=== PATIENT | female | born 1930 | race Caucasian/White ===

== ENCOUNTER 2018-12-16 20:25 | Inpatient (IN) | payer MEDICARE ==
[~2018-12-16] VITALS: Ht 162.6 cm; Wt 81.2 kg
[2018-12-16] MEDS ORDERED: ASPIRIN 81 MG TAB.CHEW PO ONE (20:30)
[2018-12-16] MEDS ORDERED: MORPHINE SULFATE 2 MG/ML DISP.SYRIN. IV ONE (20:30)
[2018-12-16] MEDS ORDERED: IV RINGERS SOLUTION,LACTATED 1,000 ML IV SCH (20:30)
--- NOTE | 2018-12-16 20:34 | ED.ADGEN ---
Past History Past Medical History: Arthritis, Arrhythmia, CAD, Diabetes, GERD, High Cholesterol, Heart Disease, Hypertension, Kidney Infection, Lung Disease, UTI, Other Past Surgical History: Angioplasty, Coronary Bypass Surgery, Other Past Surgical History Rt. ankle- Adult General Chief Complaint Chief Complaint ".. I had another episode of chest pain tonight.. "... " I was just in to see my Perl Software Engineer at [facility].. Dr. Camila Park... he said he might do a stress test or heart cath at some point.. but would not do anything until maybe next year some time.. He said just go to the ED .. if I got chest pain again..." HPI HPI Patient is a 88 year old female who presents with above hx and chest pain. Pain was center of chest and into both axillary area. Pt. reports pain was more of ache...Pt. had similar episode a week ago. Pt. seen her Perl Software Engineer on . Pt. Hx of CABG [address] Zavala at , after attempts of angioplasty not successful. Patient has a history of multiple medical problems, diabetes, hypertension, overflow urinary incontinence with frequent urinary tract infections, arthritis, reflux, and deconditioning. Pt. Follows with Dr. Worthington as primary. Patient advises she used to take nitroglycerin for angina episodes but has not done so for some time. Patient did receive flu shot and Pneumovax yesterday. Patient is accompanied with her daughter. She currently rates her pain as 0 out of 10. Review of Systems Review of Systems Constitutional: Denies fever or chills [] Eyes: Denies change in visual acuity, redness, or eye pain [] HENT: Denies nasal congestion or sore throat [] Respiratory: Denies cough or shortness of breath [] Cardiovascular: No additional information not addressed in HPI [] GI: Denies abdominal pain, nausea, vomiting, bloody stools or diarrhea [] : Denies dysuria or hematuria [] Musculoskeletal: Denies back pain or joint pain [] Integument: Denies rash or skin lesions [] Neurologic: Denies headache, focal weakness or sensory changes [] Endocrine: Denies polyuria or polydipsia [] All other systems were reviewed and found to be within normal limits, except as documented in this note. Family History Family History Diabetes and hypertension Current Medications Current Medications Current Medications Medications (Trade) Dose Ordered Sig/Vicente Start Time Stop Time Status Last Admin Dose Admin Aspirin (Children'S Aspirin) 324 mg 1X ONCE 12/16/18 20:30 12/16/18 20:35 DC 12/16/18 20:45 324 MG Lactated Ringer's 1,000 ml @ 100 mls/hr Q10H 12/16/18 20:30 12/17/18 06:29 12/16/18 20:46 100 MLS/HR Morphine Sulfate (Morphine 2mg Syringe) 2 mg 1X ONCE 12/16/18 20:30 12/16/18 20:35 DC Nitroglycerin (Nitro-Bid Oint) 0.5 inch 1X ONCE 12/16/18 21:30 12/16/18 21:31 DC 12/16/18 21:23 0.5 INCH Allergies Allergies Allergies Coded Allergies Type Severity Reaction Last Updated Verified digoxin Allergy Intermediate 12/16/18 Yes morphine Allergy Intermediate 12/16/18 Yes Physical Exam Physical Exam Constitutional: no acute distress currently, non-toxic appearance. [] HENT: Normocephalic, atraumatic, bilateral external ears normal, oropharynx moist, no oral exudates, nose normal. [] Eyes: PERRLA, EOMI, conjunctiva normal, no discharge. [Eyeglasses Neck: Normal range of motion, no tenderness, supple, no stridor. [] Cardiovascular: Tachycardia Heart rate regular rhythm, no murmur []ARELY to the left. Occasional PVC on monitor. Appears to be accelerated junctional rhythm Lungs & Thorax: Bilateral breath sounds equal at apex with scattered wheezes on auscultation []midline sternal scar Abdomen: Bowel sounds normal, soft, no tenderness, no masses, no pulsatile masses. Old surgery scars Skin: Warm, dry, no erythema, no rash. Poor turgor Back: No tenderness, no CVA tenderness. [] Extremities: No tenderness, no cyanosis, no clubbing, , bilateral ankle edema. Arthritic changes. Old surgery scar right ankle. No cording appreciated Neurologic: Alert and oriented X 3, moves all extremities on request, does have distal sensory, no focal deficits noted. [] Psychologic: Affect anxious, judgement normal, mood normal. [] Current Patient Data Vital Signs Vital Signs Date Time Temp Pulse Resp B/P (MAP) Pulse Ox O2 Delivery O2 Flow Rate FiO2 12/16/18 21:23 75 140/75 12/16/18 20:25 97.9 22 96 Room Air Lab Results Laboratory Tests Test 12/16/18 20:30 12/16/18 21:40 12/16/18 21:49 White Blood Count 7.6 x10^3/uL (4.0-11.0) Red Blood Count 4.91 x10^6/uL (3.50-5.40) Hemoglobin 14.5 g/dL (12.0-15.5) Hematocrit 43.3 % (36.0-47.0) Mean Corpuscular Volume 88 fL (79-100) Mean Corpuscular Hemoglobin 30 pg (25-35) Mean Corpuscular Hemoglobin Concent 33 g/dL (31-37) Red Cell Distribution Width 16.2 % (11.5-14.5) H Platelet Count 189 x10^3/uL (140-400) Neutrophils (%) (Auto) 69 % (31-73) Lymphocytes (%) (Auto) 15 % (24-48) L Monocytes (%) (Auto) 11 % (0-9) H Eosinophils (%) (Auto) 4 % (0-3) H Basophils (%) (Auto) 1 % (0-3) Neutrophils # (Auto) 5.3 x10^3uL (1.8-7.7) Lymphocytes # (Auto) 1.2 x10^3/uL (1.0-4.8) Monocytes # (Auto) 0.8 x10^3/uL (0.0-1.1) Eosinophils # (Auto) 0.3 x10^3/uL (0.0-0.7) Basophils # (Auto) 0.1 x10^3/uL (0.0-0.2) Sodium Level 137 mmol/L (136-145) Potassium Level 3.9 mmol/L (3.5-5.1) Chloride Level 98 mmol/L (98-107) Carbon Dioxide Level 31 mmol/L (21-32) Anion Gap 8 (6-14) Blood Urea Nitrogen 15 mg/dL (7-20) Creatinine 1.2 mg/dL (0.6-1.0) H Estimated GFR (Cockcroft-Gault) 42.5 Glucose Level 281 mg/dL (70-99) H Calcium Level 9.1 mg/dL (8.5-10.1) Magnesium Level 1.8 mg/dL (1.8-2.4) Total Bilirubin 0.2 mg/dL (0.2-1.0) Direct Bilirubin 0.1 mg/dL (0.0-0.2) Aspartate Amino Transferase (AST) 24 U/L (15-37) Alanine Aminotransferase (ALT) 27 U/L (14-59) Alkaline Phosphatase 57 U/L (46-116) Creatine Kinase 55 U/L (26-192) Troponin I Quantitative < 0.017 ng/mL (0-0.055) OS-Tfw-K-Type Natriuretic Peptide 511 pg/mL (0-449) H Total Protein 7.5 g/dL (6.4-8.2) Albumin 3.6 g/dL (3.4-5.0) Lipase 160 U/L (73-393) Prothrombin Time 10.0 SEC (9.4-11.4) Prothrombin Time INR 1.0 (0.9-1.1) Activated Partial Thromboplast Time 25 SEC (23-33) D-Dimer (Safia) 0.59 mg/L (0.00-0.50) H Urine Collection Type Unknown Urine Color Straw Urine Clarity Cloudy Urine pH 5.5 Urine Specific [place]ony 1.010 Urine Protein 30 mg/dl (NEG-TRACE) Urine Glucose (UA) >=1000 mg/dL (NEG) Urine Ketones (Stick) Neg mg/dL (NEG) Urine Blood Trace (NEG) Urine Nitrite Neg (NEG) Urine Bilirubin Neg (NEG) Urine Urobilinogen Dipstick 0.2 mg/dL (0.2 mg/dL) Urine Leukocyte Esterase Small (NEG) Urine RBC 1-2 /HPF (0-2) Urine WBC 20-40 /HPF (0-4) Urine Squamous Epithelial Cells Occ /LPF Urine Bacteria Many /HPF (0-FEW) Urine Opiates Screen Neg (NEG) Urine Methadone Screen Neg (NEG) Urine Barbiturates Neg (NEG) Urine Phencyclidine Screen Neg (NEG) Urine Amphetamine/Methamphetamine Neg (NEG) Urine Benzodiazepines Screen Neg (NEG) Urine Cocaine Screen Neg (NEG) Urine Cannabinoids Screen Neg (NEG) Urine Ethyl Alcohol Neg (NEG) EKG EKG I interpretation EKG shows accelerated junctional rhythm at a rate at 117 bpm. Does have anterior septal strain pattern and left axis. [place] baseline[] Radiology/Procedures Radiology/Procedures [][address] [address] IMAGING REPORT Signed PATIENT: RODDY KELLYOUNT: [id number] : 1930 LOCATION: ER AGE: 88 SEX: F EXAM STATUS: PRE ER ORD. PHYSICIAN: SHIRLEY SOLIS MD REASON: cp PROCEDURE: PORTABLE CHEST 1V Exam: Chest one view INDICATION: Chest pain TECHNIQUE: Frontal view of the chest Comparisons: None FINDINGS: Sternotomy wires are noted. Surgical clips overlying the left heart border. The cardiomediastinal silhouette and pulmonary vessels are within normal limits. The lung and pleural spaces are clear. IMPRESSION: No acute cardiopulmonary process. Electronically signed by: Grayson Maldonado MD (12/16/2018 10:33 PM) [facility] DICTATED AND SIGNED BY: GRAYSON MALDONADO MD DATE: 12/16/182232 CC: SHIRLEY SOLIS MD ~ Course & Med Decision Making Course & Med Decision Making Pertinent Labs and Imaging studies reviewed. (See chart for details) Pt. Admitted to Dr. Larkin, and Cardiology consult. US of legs in AM . Antibiotic for UTI. At time admit no discomfort. - Accelerated Junctional Rhythm - Resolved [] Final Impression Final Impression 1. Chest Pain- Heart Score 6+[] 2. HTN 3. DM- 281 4. Elevated D-dimer 0.59 5. Elevated Creat 1.2 6. Hx. Urinary Overflow incontinence-self caths - Hx. of UTI 7. Accelerated Junctional Rhythm Dragon Disclaimer Dragon Disclaimer This electronic medical record was generated, in whole or in part, using a voice recognition dictation system. Dragon Disclaimer This chart was dictated in whole or in part using Voice Recognition software in a busy, high-work load, and often noisy Emergency Department environment. It may contain unintended and wholly unrecognized errors or omissions. SHIRLEY SOLIS MD Dec 16, 2018 20:34
[2018-12-16 20:49] LABS: BASO # 0.1 x10^3/uL (0.0-0.2); BASO % 1 % (0-3); EOS # 0.3 x10^3/uL (0.0-0.7); EOS % 4 % (0-3); HEMATOCRIT 43.3 % (36.0-47.0); HEMOGLOBIN 14.5 g/dL (12.0-15.5); LYMPH # 1.2 x10^3/uL (1.0-4.8); LYMPH % 15 % (24-48); MEAN CORPUSCULAR HEMOGLOBIN 30 pg (25-35); MEAN CORPUSCULAR HGB CONC 33 g/dL (31-37); MEAN CORPUSCULAR VOLUME 88 fL (79-100); MONO # 0.8 x10^3/uL (0.0-1.1); MONO % 11 % (0-9); NEUT # 5.3 x10^3uL (1.8-7.7); NEUT % 69 % (31-73); PLATELET COUNT 189 x10^3/uL (140-400); RED BLOOD COUNT 4.91 x10^6/uL (3.50-5.40); RED CELL DISTRIBUTION WIDTH 16.2 % (11.5-14.5); WHITE BLOOD COUNT 7.6 x10^3/uL (4.0-11.0)
[2018-12-16 21:12] LABS: ALBUMIN 3.6 g/dL (3.4-5.0); CALCIUM 9.1 mg/dL (8.5-10.1); CREATININE 1.2 mg/dL (0.6-1.0); DIRECT BILIRUBIN 0.1 mg/dL (0.0-0.2); GFR 42.5; MAGNESIUM 1.8 mg/dL (1.8-2.4); POTASSIUM 3.9 mmol/L (3.5-5.1); TOTAL BILIRUBIN 0.2 mg/dL (0.2-1.0); TOTAL PROTEIN 7.5 g/dL (6.4-8.2)
[2018-12-16] MEDS ORDERED: NITROGLYCERIN OINT 1 GM PACKET. TP ONE (21:30)
[2018-12-16 22:13] LABS: AMPHETAMINE/METHAMPHETAMINE NEG (NEG); BARBITURATES NEG (NEG); BENZODIAZEPINES NEG (NEG); CANNABINOIDS NEG (NEG); COCAINE NEG (NEG); METHADONE NEG (NEG); OPIATES NEG (NEG); PHENCYCLIDINE NEG (NEG)
--- NOTE | 2018-12-16 22:36 | RAD ---
Exam: Chest one view INDICATION: Chest pain TECHNIQUE: Frontal view of the chest Comparisons: None FINDINGS: Sternotomy wires are noted. Surgical clips overlying the left heart border. The cardiomediastinal silhouette and pulmonary vessels are within normal limits. The lung and pleural spaces are clear. IMPRESSION: No acute cardiopulmonary process. Electronically signed by: Grayson Barnes MD (12/16/2018 10:33 PM) [facility]
[2018-12-16 22:51] LABS: CLARITY,URINE CLOUDY; COLOR,URINE STRAW
[2018-12-16 22:52] LABS: BACTERIA,URINE MANY /HPF (0-FEW); BILIRUBIN,URINE NEG (NEG); GLUCOSE,URINE >=1000 mg/dL (NEG); NITRITE,URINE NEG (NEG); SQUAMOUS EPITHELIAL CELL,UR OCC /LPF; UROBILINOGEN,URINE 0.2 mg/dL (0.2 mg/dL); WBC,URINE 20-40 /HPF (0-4)
[2018-12-16] MEDS ORDERED: ONDANSETRON PF 4 MG/2 ML VIAL. IV PRN (23:15)
[2018-12-16] MEDS ORDERED: ACETAMINOPHEN 325 MG TABLET PO PRN (23:15)
[2018-12-16] MEDS ORDERED: ENOXAPARIN ** NOTE DOSE ** SYRINGE SQ ONE (23:30)
[2018-12-16] MEDS ORDERED: cefTRIAXone SODIUM 1 GM VIAL ONE (23:40)
[2018-12-16] MEDS ORDERED: IV NORMAL SALINE 50ML 50 ML ONE (23:40)
[2018-12-17 01:21] VITALS: BP 164/79
[2018-12-17] MEDS ORDERED: ANTI-COAG MONITOR BY PHARMACY. MC PRN (01:45)
[2018-12-17] MEDS ORDERED: SIMV20TA3 (02:21)
[2018-12-17] MEDS ORDERED: CHOL10003 PO (02:21)
[2018-12-17] MEDS ORDERED: ISOS30TA4 (02:21)
[2018-12-17] MEDS ORDERED: FENO67CA (02:21)
[2018-12-17] MEDS ORDERED: ASPI-630 PO (02:21)
[2018-12-17] MEDS ORDERED: MAGN71.5 PO (02:21)
[2018-12-17] MEDS ORDERED: INSU100V13 (02:21)
[2018-12-17] MEDS ORDERED: SERT25TA4 (02:21)
[2018-12-17] MEDS ORDERED: LEVO125T (02:21)
[2018-12-17] MEDS ORDERED: METO100T7 (02:21)
[2018-12-17] MEDS ORDERED: OMEP40CA45 (02:21)
--- NOTE | 2018-12-17 03:35 | EKG ---
[address] [address] Test Date: 2018-12-16 Test Time: 20:28:31 Pat Name: SHEREEN KELLY Department: Room: 117 A Gender: F Lead Javascript Engineer: SERA : 1930 Requested By: SHIRLEY SOLIS Order Number: [id number] Reading MD: Asif Blackburn MD Measurements Intervals [place] Rate: 117 P: AL: QRS: -12 QRSD: 76 T: 51 QT: 312 QTc: 439 Interpretive Statements PROBABLE SINUS TACHYCARDIA CANNOT RULE OUT JUNCTIONAL RHYTHM NON-SPECIFIC ST/T CHANGES Electronically Signed On 12-17-2018 13:04:46 CDT by Asif Blackburn MD
[2018-12-17 05:39] VITALS: BP 131/71
[2018-12-17 06:44] LABS: BASO # 0.1 x10^3/uL (0.0-0.2); BASO % 1 % (0-3); EOS # 0.4 x10^3/uL (0.0-0.7); EOS % 5 % (0-3); HEMATOCRIT 42.7 % (36.0-47.0); HEMOGLOBIN 14.1 g/dL (12.0-15.5); LYMPH # 1.2 x10^3/uL (1.0-4.8); LYMPH % 15 % (24-48); MEAN CORPUSCULAR HEMOGLOBIN 29 pg (25-35); MEAN CORPUSCULAR HGB CONC 33 g/dL (31-37); MEAN CORPUSCULAR VOLUME 89 fL (79-100); MONO # 0.8 x10^3/uL (0.0-1.1); MONO % 11 % (0-9); NEUT # 5.3 x10^3uL (1.8-7.7); NEUT % 68 % (31-73); PLATELET COUNT 204 x10^3/uL (140-400); RED BLOOD COUNT 4.81 x10^6/uL (3.50-5.40); RED CELL DISTRIBUTION WIDTH 16.7 % (11.5-14.5); WHITE BLOOD COUNT 7.7 x10^3/uL (4.0-11.0)
[2018-12-17 07:34] LABS: ALBUMIN 3.5 g/dL (3.4-5.0); ALBUMIN/GLOBULIN RATIO 0.9 (1.0-1.7); CALCIUM 8.6 mg/dL (8.5-10.1); CREATININE 1.1 mg/dL (0.6-1.0); POTASSIUM 3.8 mmol/L (3.5-5.1); TOTAL BILIRUBIN 0.2 mg/dL (0.2-1.0); TOTAL PROTEIN 7.3 g/dL (6.4-8.2)
--- NOTE | 2018-12-17 07:44 | PDOC2 ---
EARL HIGH EMBROIDERY ASSISTANT 12/17/18 0744: CARDIAC CONSULT DATE OF CONSULT Date Of Consult DATE: 12/17/18 TIME: 07:40 REASON FOR CONSULT Reason for Consult Chest pain REFERRING PHYSICIAN Referring Physician Dr. Pierson SOURCE Source: Chart review, Patient HPI History of Present Illness This is an 88 yo female who presented secondary to chest pain. Patient reports having episode of chest pain 2 weeks ago. Describes as aching across her central chest and through to her back and down her arms. No associated dizziness, diaphoresis, shortness of breath, or nausea/vomiting. Saw primary director of strategic communications, Dr. Morales last week and reported episode of chest pain. Stress test versus heart cath was discussed, but ultimately decided not to pursue anything further at that time. Was recommended to go to the ED if pain returned. Yesterday evening while watching television, patient had aching pain in her bilateral chest up under her arms. No associated dizziness, diaphoresis, palpitations, shortness of breath, or nausea/vomiting. Patient went to bed and pain persisted so she came to the ED for further evaluation and treatment. Pain seemed to resolved with nitro patch and has not returned since. Has a h/o CAD s/p 2 vessel CABG in 2002. No cardiac cath since bypass. No recent stress test or echocardiogram. PAST MEDICAL HISTORY Cardiovascular: CAD, HTN, hyperipidemia GI: GERD Heme/Onc: Cancer (breast, bladder, thyroid ) Musculoskeletal: Osteoarthritis Renal/: UTI Endocrine: Diabetes, Hypothyroidism (acquired ) PAST SURGICAL HISTORY Past Surgical History: CABG, Hysterectomy, Other (thyroidectomy ) FAMILY HISTORY Family History: Cancer SOCIAL HISTORY Smoke: No ALCOHOL: none Drugs: None Lives: with Family CURRENT MEDICATIONS Current Medications Current Medications Aspirin (Children'S Aspirin) 324 mg 1X ONCE PO Last administered on 12/16/18at 20:45; Start 12/16/18 at 20:30; Stop 12/16/18 at 20:35; Status DC Morphine Sulfate (Morphine 2mg Syringe) 2 mg 1X ONCE IV ; Start 12/16/18 at 20:30; Stop 12/16/18 at 20:35; Status DC Lactated Ringer's 1,000 ml @ 100 mls/hr Q10H IV Last administered on 12/16/18at 20:46; Start 12/16/18 at 20:30; Stop 12/17/18 at 06:29; Status DC Nitroglycerin (Nitro-Bid Oint) 0.5 inch 1X ONCE TP Last administered on 12/16/18at 21:23; Start 12/16/18 at 21:30; Stop 12/16/18 at 21:31; Status DC Ceftriaxone Sodium 1 gm/ Sodium Chloride 50 ml @ 100 mls/hr 1X ONCE IV Last administered on 12/16/18at 23:48; Start 12/16/18 at 23:30; Stop 12/16/18 at 23:59; Status DC Ondansetron HCl (Zofran) 4 mg PRN Q4HRS PRN IV NAUSEA/VOMITING; Start 12/16/18 at 23:15; Stop 12/17/18 at 23:14 Acetaminophen (Tylenol) 650 mg PRN Q4HRS PRN PO FEVER; Start 12/16/18 at 23:15; Stop 12/17/18 at 23:14 Albuterol/ Ipratropium (Duoneb) 3 ml RTQID NEB ; Start 12/17/18 at 08:00; Stop 12/18/18 at 07:59 Enoxaparin Sodium (Lovenox 80mg Syringe) 80 mg 1X ONCE SQ Last administered on 12/16/18at 23:47; Start 12/16/18 at 23:30; Stop 12/16/18 at 23:31; Status DC Nitroglycerin (Nitro-Bid Oint) 0.5 inch TID TP ; Start 12/17/18 at 09:00 Aspirin (Children'S Aspirin) 81 mg DAILY PO ; Start 12/17/18 at 09:00 Sodium Chloride 50 ml @ As Directed STK-MED ONCE .ROUTE ; Start 12/16/18 at 23:40; Stop 12/16/18 at 23:40; Status DC Ceftriaxone Sodium (Rocephin) 1 gm STK-MED ONCE .ROUTE ; Start 12/16/18 at 23:40; Stop 12/16/18 at 23:40; Status DC Enoxaparin Sodium (Lovenox 80mg Syringe) 80 mg Q12HR SQ ; Start 12/17/18 at 09:00 Info (Anti-Coagulation Monitoring By Pharmacy) 1 each PRN DAILY PRN MC SEE COMMENTS; Start 12/17/18 at 01:45 Active Scripts Active Reported Vitamin D3 (Cholecalciferol (Vitamin D3)) 1,000 Unit Tablet 6 Tab PO DAILY Slow-Mag (Magnesium Chloride) 71.5 Mg Tablet.dr 1 Tab PO BID 30 Days Aspirin 81 Mg Tab.chew 81 Mg PO DAILY Sertraline Hcl 25 Mg Tablet 0.5 QHS Synthroid (Levothyroxine Sodium) 125 Mcg Tablet 1 DAILY Simvastatin 20 Mg Tablet 1 DAILY Omeprazole 40 Mg Capsule.dr 1 BID Metoprolol Tartrate 100 Mg Tablet 1 SEE COMMENTS Levemir (Insulin Detemir) 100 Unit/1 Ml Vial 1 SEE COMMENT Isosorbide Mononitrate Er (Isosorbide Mononitrate) 30 Mg Tab.er.24h 1 DAILY Fenofibrate (Fenofibrate,Micronized) 67 Mg Capsule 1 QHS ALLERGIES Allergies: Coded Allergies: digoxin (Verified Allergy, Intermediate, 12/16/18) morphine (Verified Allergy, Intermediate, 12/16/18) ROS Review of Systems 14 point ROS conducted with pertinent positives noted above in HPI. PHYSICAL EXAM General: Alert, Oriented X3, Cooperative, No acute distress HEENT: Atraumatic Lungs: Clear to auscultation, Normal air movement Heart: Regular rate (SR with 1st degree AVB), Normal S1, Normal S2, Other (2/6 systolic murmur) Abdomen: Soft, No tenderness Extremities: No edema, Normal pulses Skin: No breakdown Neuro: Normal speech, Sensation intact Psych/Mental Status: Mental status NL, Mood NL MUSCULOSKELETAL: Osteoarthritic changes both hands VITALS Vital Signs Vital Signs Date Time Temp Pulse Resp B/P (MAP) Pulse Ox O2 Delivery O2 Flow Rate FiO2 12/17/18 05:39 97.8 78 20 131/71 (91) 95 Room Air LABS LABS Laboratory Tests Test 12/16/18 20:30 12/16/18 21:40 12/16/18 21:49 12/17/18 06:03 White Blood Count 7.6 x10^3/uL (4.0-11.0) 7.7 x10^3/uL (4.0-11.0) Red Blood Count 4.91 x10^6/uL (3.50-5.40) 4.81 x10^6/uL (3.50-5.40) Hemoglobin 14.5 g/dL (12.0-15.5) 14.1 g/dL (12.0-15.5) Hematocrit 43.3 % (36.0-47.0) 42.7 % (36.0-47.0) Mean Corpuscular Volume 88 fL (79-100) 89 fL (79-100) Mean Corpuscular Hemoglobin 30 pg (25-35) 29 pg (25-35) Mean Corpuscular Hemoglobin Concent 33 g/dL (31-37) 33 g/dL (31-37) Red Cell Distribution Width 16.2 % (11.5-14.5) 16.7 % (11.5-14.5) Platelet Count 189 x10^3/uL (140-400) 204 x10^3/uL (140-400) Neutrophils (%) (Auto) 69 % (31-73) 68 % (31-73) Lymphocytes (%) (Auto) 15 % (24-48) 15 % (24-48) Monocytes (%) (Auto) 11 % (0-9) 11 % (0-9) Eosinophils (%) (Auto) 4 % (0-3) 5 % (0-3) Basophils (%) (Auto) 1 % (0-3) 1 % (0-3) Neutrophils # (Auto) 5.3 x10^3uL (1.8-7.7) 5.3 x10^3uL (1.8-7.7) Lymphocytes # (Auto) 1.2 x10^3/uL (1.0-4.8) 1.2 x10^3/uL (1.0-4.8) Monocytes # (Auto) 0.8 x10^3/uL (0.0-1.1) 0.8 x10^3/uL (0.0-1.1) Eosinophils # (Auto) 0.3 x10^3/uL (0.0-0.7) 0.4 x10^3/uL (0.0-0.7) Basophils # (Auto) 0.1 x10^3/uL (0.0-0.2) 0.1 x10^3/uL (0.0-0.2) Sodium Level 137 mmol/L (136-145) 140 mmol/L (136-145) Potassium Level 3.9 mmol/L (3.5-5.1) 3.8 mmol/L (3.5-5.1) Chloride Level 98 mmol/L (98-107) 100 mmol/L (98-107) Carbon Dioxide Level 31 mmol/L (21-32) 33 mmol/L (21-32) Anion Gap 8 (6-14) 7 (6-14) Blood Urea Nitrogen 15 mg/dL (7-20) 14 mg/dL (7-20) Creatinine 1.2 mg/dL (0.6-1.0) 1.1 mg/dL (0.6-1.0) Estimated GFR (Cockcroft-Gault) 42.5 47.0 Glucose Level 281 mg/dL (70-99) 156 mg/dL (70-99) Calcium Level 9.1 mg/dL (8.5-10.1) 8.6 mg/dL (8.5-10.1) Magnesium Level 1.8 mg/dL (1.8-2.4) Total Bilirubin 0.2 mg/dL (0.2-1.0) 0.2 mg/dL (0.2-1.0) Direct Bilirubin 0.1 mg/dL (0.0-0.2) Aspartate Amino Transf (AST/SGOT) 24 U/L (15-37) 21 U/L (15-37) Alanine Aminotransferase (ALT/SGPT) 27 U/L (14-59) 25 U/L (14-59) Alkaline Phosphatase 57 U/L (46-116) 52 U/L (46-116) Creatine Kinase 55 U/L (26-192) Troponin I Quantitative < 0.017 ng/mL (0-0.055) NA-Add-I-Type Natriuretic Peptide 511 pg/mL (0-449) Total Protein 7.5 g/dL (6.4-8.2) 7.3 g/dL (6.4-8.2) Albumin 3.6 g/dL (3.4-5.0) 3.5 g/dL (3.4-5.0) Lipase 160 U/L (73-393) Prothrombin Time 10.0 SEC (9.4-11.4) Prothromb Time International Ratio 1.0 (0.9-1.1) Activated Partial Thromboplast Time 25 SEC (23-33) D-Dimer (Safia) 0.59 mg/L (0.00-0.50) Urine Collection Type Unknown Urine Color Straw Urine Clarity Cloudy Urine pH 5.5 Urine Specific [place] 1.010 Urine Protein 30 mg/dl (NEG-TRACE) Urine Glucose (UA) >=1000 mg/dL (NEG) Urine Ketones (Stick) Neg mg/dL (NEG) Urine Blood Trace (NEG) Urine Nitrite Neg (NEG) Urine Bilirubin Neg (NEG) Urine Urobilinogen Dipstick 0.2 mg/dL (0.2 mg/dL) Urine Leukocyte Esterase Small (NEG) Urine RBC 1-2 /HPF (0-2) Urine WBC 20-40 /HPF (0-4) Urine Squamous Epithelial Cells Occ /LPF Urine Bacteria Many /HPF (0-FEW) Urine Opiates Screen Neg (NEG) Urine Methadone Screen Neg (NEG) Urine Barbiturates Neg (NEG) Urine Phencyclidine Screen Neg (NEG) Urine Amphetamine/Methamphetamine Neg (NEG) Urine Benzodiazepines Screen Neg (NEG) Urine Cocaine Screen Neg (NEG) Urine Cannabinoids Screen Neg (NEG) Urine Ethyl Alcohol Neg (NEG) BUN/Creatinine Ratio 13 (6-20) Albumin/Globulin Ratio 0.9 (1.0-1.7) ASSESSMENT/PLAN Assessment/Plan 1. Chest pain, mixed features. Initial troponin negative 2. CAD s/p CABG 2002. Follow with Dr. Morales at [place] 3. Hypertension 4. Hyperlipidemia 5. Diabetes, II 6. Hypothyroidism, acquired. s/p thyroidectomy secondary to CA Recommendations Trend troponin Echo to assess LV systolic function Lipid panel Continue ASA, statin, BB, Imdur. Obtains cardiac records from [place] Patient would prefer conservative management, but would like to discuss this further with daughter Would like to establish cardiovascular care here as she now lives near with daughter. RONNIE HAHN MD 12/17/18 2231: CARDIAC CONSULT ASSESSMENT/PLAN Assessment/Plan Pt. seen and examined. 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 '88 y.o woman with atypical pain. Exam wnl Labs/ekg/echo wnl. No high risk features. Continue metoprolol/imdur, asa. Discussed with patient and daughter, they opt for conservative mgmt. Plan for outpt f/u. Thanks EARL HIGH APRN Dec 17, 2018 07:44 RONNIE HAHN MD Dec 17, 2018 22:31
[2018-12-17] MEDS ORDERED: IPRATRPIUM/ALBUTEROL 0.5/2.5MG 3 ML NEBU. NEB SCH (08:00)
[2018-12-17] MEDS ORDERED: INSU100V13 SQ (08:12)
[2018-12-17] MEDS ORDERED: INSU100V11 IJ (08:15)
[2018-12-17] MEDS ORDERED: LEVOTHYROXINE 125 MCG TABLET PO SCH (08:30)
[2018-12-17] MEDS ORDERED: CHOLECALCIFEROL (VITAMIN D3) 1,000 UNIT TABLET PO SCH (09:00)
[2018-12-17] MEDS ORDERED: METOPROLOL TART IMMED RELEASE 50 MG TABLET PO SCH (09:00)
[2018-12-17] MEDS ORDERED: SIMVASTATIN 20 MG TABLET PO SCH (09:00)
[2018-12-17] MEDS ORDERED: MAGNESIUM CHLORIDE ER 64 MG TABLET.ER PO SCH (09:00)
[2018-12-17] MEDS ORDERED: ASPIRIN 81 MG TAB.CHEW PO SCH ×2 (09:00)
[2018-12-17] MEDS ORDERED: ISOSORBIDE MONONITRATE ER 30 MG TAB.ER.24H PO SCH (09:00)
[2018-12-17] MEDS: NITROGLYCERIN OINT 1 GM PACKET. TP SCH ×2 (09:00→14:00)
[2018-12-17] MEDS ORDERED: INSULIN GLARGINE SYRINGE. SQ SCH (09:00)
[2018-12-17] MEDS ORDERED: ENOXAPARIN ** NOTE DOSE ** SYRINGE SQ SCH (09:00)
--- NOTE | 2018-12-17 09:58 | RAD ---
VENOUS LOWER EXT BILATERAL History: Chest pain. Elevated d-dimer. Comparison: None. Discussion: Multiple longitudinal and transverse high resolution real-time images of the venous system of bilateral lower extremity were obtained with color and Doppler sampling. The common femoral, superficial femoral, popliteal and proximal calf veins are all patent and demonstrate normal flow and compressibility. Normal respiratory phasicity and augmentation is present. Impression: 1. No evidence of deep vein thrombosis within the bilateral lower extremities. Electronically signed by: Ajay Denney DO (12/17/2018 9:55 AM) [facility]
[2018-12-17 11:06] VITALS: BP 157/72
[2018-12-17] MEDS: INSULIN LISPRO 300 UNITS/3 ML VIAL. SQ SCH ×2 (12:00→17:22)
[2018-12-17 14:41] VITALS: BP 137/69
--- NOTE | 2018-12-17 14:50 | CARD ---
MR#: [id number] Date of Study: 12/17/2018 Ordering Physician: EARL HIGH, Referring Physician: EARL HIGH, Tech: Nuria Kwong APPROVED REPORT EXAM: Two-dimensional and M-mode echocardiogram with Doppler and color Doppler. Other Information Quality : AverageHR: 108bpm INDICATION Cardiac Disease: CAD Chest Pain Surgery/Intervention CABG: Date: 1999 RISK FACTORS Hypertension Hyperlipidemia Diabetes 2D DIMENSIONS RVDd2.3 (2.9-3.5cm)Left Atrium(2D)3.2 (1.6-4.0cm) IVSd1.3 (0.7-1.1cm)Aortic Root(2D)2.7 (2.0-3.7cm) LVDd4.4 (3.9-5.9cm)LVOT Diameter2.1 (1.8-2.4cm) PWd1.2 (0.7-1.1cm)LVDs2.0 (2.5-4.0cm) FS (%) 54.0 %SV73.1 ml LVEF(%)85.0 (>50%) Aortic Valve AoV Peak Joaquim.202.0cm/sAoV VTI33.5cm AO Peak GR.16.3mmHgLVOT Peak Joaquim.139.3cm/s LVOT VTI 24.71cmAO Mean GR.9mmHg TIANNA (VMAX)2.71ek0VMY (VTI)2.65cm2 Pulmonary Valve PV Peak Onccswos68.0cm/sPV Peak Grad.4mmHg Tricuspid Valve TR P. Mqescruj446df/sRAP NLYGDEUV4vrSz TR Peak Gr.78clNqNNFQ06vsTe Pulmonary Vein S1 Tjeupopt71.2cm/sD2 Jvhlfkpz35.8cm/s LEFT VENTRICLE The left ventricle is normal size. There is moderate concentric left ventricular hypertrophy. The lef t ventricular systolic function is normal. The Ejection Fraction is 70%. Septal motion consistent wit h postoperative state. Diastology indeterminate. RIGHT VENTRICLE The right ventricle is normal size. There is normal right ventricular wall thickness. The right ventr icular systolic function is normal. ATRIA The left atrium is borderline dilated. The right atrium size is normal. The interatrial septum is int act with no evidence for an atrial septal defect or patent foramen ovale as noted on 2-D or Doppler i maging. AORTIC VALVE The aortic valve is calcified but opens well. Doppler and Color Flow revealed no significant aortic r egurgitation. There is no significant aortic valvular stenosis. MITRAL VALVE Mitral annular calcification is mild to moderate. There is no evidence of mitral valve prolapse. Ther e is no mitral valve stenosis. Doppler and Color-flow revealed trace mitral regurgitation. TRICUSPID VALVE The tricuspid valve is normal in structure and function. Doppler and Color Flow revealed trace tricus pid regurgitation with an estimated PAP of 30 mmHg. There is no tricuspid valve prolapse or vegetatio n. There is no tricuspid valve stenosis. PULMONIC VALVE The pulmonic valve is not well visualized. Doppler and Color Flow revealed no pulmonic valvular regur gitation. GREAT VESSELS The aortic root is normal in size. The IVC was not visualized. PERICARDIAL EFFUSION There is no evidence of significant pericardial effusion. Critical Notification Critical Value: No <Conclusion> The left ventricular systolic function is normal. The Ejection Fraction is 70%. Trace mitral regurgitation. Trace tricuspid regurgitation with an estimated PAP of 30 mmHg. There is no evidence of significant pericardial effusion. Signed by : Naresh Braxton, Electronically Approved : 12/17/2018 14:50:07
[2018-12-17] MEDS ORDERED: IPRATRPIUM/ALBUTEROL 0.5/2.5MG 3 ML NEBU. NEB PRN (16:00)
[2018-12-17 16:31] LABS: THYROID STIM HORMONE (TSH) 6.268 uIU/mL (0.358-3.740)
--- NOTE | 2018-12-17 18:17 | HP ---
ADMIT DATE: 12/16/2018 HISTORY OF PRESENT ILLNESS: The patient is an 88-year-old female patient, who presented to the Emergency Room with the complaint of chest pain. She apparently has had an episode of chest pain 2 weeks ago, described as aching across her central chest and through to her back and down her arms. No associated dizziness, diaphoresis, shortness of breath, nausea, or vomiting. She saw her primary clipper and turner, ____ last week and reported episodes of chest pain. Stress test versus heart catheterization was discussed, but ultimately decided not to pursue anything further at that time and was recommended to go to the Emergency Room with pain returned. Yesterday, evening while watching TV, patient had aching pain in her bilateral chest, up under her arms. No associated dizziness, diaphoresis, palpitation, shortness of breath, nausea, or vomiting. The patient went to bed and pain persisted, so she came to the Emergency Department for further evaluation and treatment. The pain seems to have resolved with nitro patch and has not returned since. She was evaluated in the Emergency Room and her initial troponin was 0.029 and was admitted to do 2 more sets of cardiac enzyme and to consult the clipper and turner and arrange for an echocardiogram. PAST MEDICAL HISTORY: Significant for hypertension, hyperlipidemia, and type 2 diabetes mellitus. She has also chronic kidney disease, hypothyroidism, and gastroesophageal reflux disease. She has breast, bladder, and thyroid cancer. She has osteoarthritis, recurrent UTIs, and neurogenic bladder. PAST SURGICAL HISTORY: Significant for coronary artery bypass graft surgery, a vaginal hysterectomy, bladder tumor resection, and thyroidectomy. FAMILY HISTORY: She has 2 brothers, 1 brother at age of 72 because of a stroke and the second brother at age of 84 because of Alzheimer disease, lung cancer, and skin cancer. Her father at the age of 64 because of leukemia. Mother at age of 58 because of a pancreatic cancer. ALLERGIES: She is allergic to DIGOXIN and MORPHINE. MEDICATIONS: She is currently on following medications: She is on fenofibrate 67 mg once a day, simvastatin 20 mg daily, isosorbide mononitrate 30 mg daily, metoprolol tartrate 100 mg once a day, aspirin 81 mg once a day, sertraline 25 mg and she takes half a tablet once a day, magnesium chloride ____ mg once a day, omeprazole 40 mg twice a day, Levemir 55 units b.i.d., regular insulin 45 units t.i.d. before meals, levothyroxine sodium 125 mcg once a day, cholecalciferol vitamin D3 6000 international units p.o. daily. SOCIAL HISTORY: She is and has one daughter and one grandson. She quit smoking long time ago. She does not drink alcohol or use any recreational drugs. She retired as an [employer] in 1995. REVIEW OF SYSTEMS: She does have cataracts, but denied any glaucoma or macular degeneration. Denied any earache, tinnitus, or sensorineural deafness. Denied nosebleeds, stuffy nose, or postnasal drip. Denied any sore throat, sore tongue, toothache, hoarseness of voice, or difficulty swallowing. Denied any nausea, vomiting, or diarrhea, but has constipation. Denied any hematemesis, melena, or hematochezia. Denied any dysuria, frequency, or hematuria. She has neurogenic bladder. She requires self-catheterization. She always have chest pain. Denied any shortness of breath, cough, phlegm, or hemoptysis. PHYSICAL EXAMINATION: GENERAL: On arrival to the Emergency Room, she looked well and was clearly in no apparent respiratory distress, pale, no jaundice, cyanosis, or thyromegaly. No jugular venous distension. No limb edema. VITAL SIGNS: Her heart rate was 71, blood pressure was 121/72, temperature was 98, respiratory rate was 23, and oxygen saturation was 94% on room air. HEAD, EYES, EARS, NOSE, AND THROAT: Showed normocephalic and atraumatic. NECK: Supple. HEART: Showed normal first and second heart sounds. No gallop or murmur. CHEST: Clear to auscultation. No crepitation or rhonchi. ABDOMEN: Distended, soft, and nontender. NEUROLOGIC: She was awake, alert, and responding appropriately. All cranial nerves were intact. EXTREMITIES: She moves extremities without difficulty. She ambulates with a walker. LABORATORY WORK: On arrival showed a white cell count of 7600, hemoglobin 14.5, hematocrit 43, MCV was 88, and platelet count of 189,000. Her chemistry showed a serum sodium of 140, potassium 3.9, chloride 98, bicarbonate 31, anion gap of 8, BUN 15, and creatinine 1.2. Estimated GFR was 42 mL per minute. Her glucose was 181, calcium was 9.1, and magnesium was 1.8. Total bilirubin, AST, ALT, and alkaline phosphatase were normal. Total protein was 7.5 and albumin was 3.6. Her first set of cardiac enzymes showed troponin to be less than 0.017. Her lipase was 160. Prothrombin time, INR, and aPTT were normal. D-dimer was high at 0.59. Urinalysis showed the urine was straw colored, cloudy with a pH of 5.5, specific gravity of 1.010. There was small amount of protein and large amount of glucose, it was negative for ketones and trace of blood and negative for nitrite and leukocyte esterase, and there were 1-2 rbc's, 20-40 wbc's, and many bacteria. Her toxic screen was essentially negative. Her chest x-ray showed that she has sternotomy wires noted and surgical clips overlying the left heart border. The cardiomediastinal silhouette and pulmonary vessels are within normal limits. The lungs and pleural spaces are clear. Had venous Doppler ultrasound of both lower extremities and showed no evidence of deep vein thrombosis within the bilateral lower extremity vein. The patient was basically admitted to do 2 more sets of cardiac enzymes and to consult the cardiology team. TASNEEM CAMARENA MD DR: CHRISTA/randal JOB#: [id number] / [id number]
[2018-12-17] MEDS ORDERED: SERTRALINE 25 MG TABLET. PO SCH (21:00)
[2018-12-17] MEDS ORDERED: FENOFIBRATE NANOCRYSTALLIZED 48 MG TABLET PO SCH (21:00)
[2018-12-18] MEDS ORDERED: PANTOPRAZOLE 40 MG TABLET. PO SCH (07:30)
--- NOTE | 2018-12-18 13:58 | PN ---
DATE: 12/17/2018 SUBJECTIVE: The patient is resting flat in bed, sleeping comfortably, in no apparent distress. On questioning, she has no further episodes of chest pain or shortness of breath. She has had 3 sets of cardiac enzymes and has had an echocardiogram done, which showed that her left ventricular systolic function is normal, ejection fraction of 70%. She has trace mitral regurgitation, trace tricuspid regurgitation, estimated pulmonary artery pressure of 30 mmHg. There is no evidence of significant pericardial effusion. The Cardiology team recommended to continue with aspirin, statin, beta-maximino, to obtain cardiac records from [place] and the patient would prefer conservative management, but would like to discuss this further with her daughter. We will obtain her medical records from her primary indigo mixer at [facility]. She would like to establish cardiovascular care here. She now lives near her daughter. PHYSICAL EXAMINATION: GENERAL: When I examined her this afternoon, she looked well and was clearly in no apparent respiratory distress, pale, but no jaundice, cyanosis or thyromegaly. No jugular venous distension. No limb edema. VITAL SIGNS: Her heart rate was 77, blood pressure was 137/69, temperature was 97.6, respiratory rate 20, and oxygen saturation was 94%. HEAD, EYES, EARS, NOSE AND THROAT: Showed normocephalic, atraumatic. NECK: Supple. HEART: Showed normal first and second heart sounds. No gallop or murmur. CHEST: Clear to auscultation. No crepitation or rhonchi. ABDOMEN: Distended, soft, nontender. No guarding or rigidity. No organomegaly. All hernial orifices intact. Bowel sounds normal. NEUROLOGIC: She was awake, alert, responding appropriately. All cranial nerves intact. She moves extremities without difficulty. LABORATORY DATA: Showed a serum sodium 140, potassium 3.8, chloride 100, bicarbonate 33, anion gap of 7, BUN 14, creatinine 1.1, estimated GFR was 47 mL per minute. Her glucose 156, calcium was 8.6. Total bilirubin, AST, ALT, alkaline phosphatase were normal. Total protein was 7.3, albumin 3.5. White cell count was 7700, hemoglobin 14, hematocrit 43, MCV 89 and platelet count of 204,000. ASSESSMENT: Chest pain, mixed features, troponin has risen up to 0.29 and then drop down and has history of hypertension, hyperlipidemia, type 2 diabetes, hypothyroidism. She has also coronary artery disease, status post coronary artery bypass graft in 2002. Her left ventricular systolic function showed that her ejection fraction was 70%. The left ventricular systolic function is normal and has trace mitral regurgitation, trace tricuspid regurgitation and estimated pulmonary artery pressure of 30 mmHg. No evidence of significant pericardial effusion. We will contact Dr. Blackburn and if he recommended to discharge the patient, we will discharge her otherwise, we will get more medical record from [place] for the cardiology team to evaluate. TASNEEM CAMARENA MD DR: CHRISTA/randal JOB#: [id number] / [id number]
== END 2018-12-17 18:50 | disposition home or self-care (01) | DRG 392 ==
LOC: ER 20:25 → 1 SOUTH 22:30
PROVIDERS: ADMIT Internal Medicine; ATTEND Internal Medicine
DX: K21.9 Gastro-esophageal reflux disease without esophagitis (principal); M19.90 Unspecified osteoarthritis, unspecified site; E78.00 Pure hypercholesterolemia, unspecified; I12.9 Hypertensive chronic kidney disease with stage 1 through stage 4 chronic kidney disease, or unspecified chronic kidney disease; N18.9 Chronic kidney disease, unspecified; E11.22 Type 2 diabetes mellitus with diabetic chronic kidney disease; E78.5 Hyperlipidemia, unspecified; E89.0 Postprocedural hypothyroidism; I25.10 Atherosclerotic heart disease of native coronary artery without angina pectoris; Z85.850 Personal history of malignant neoplasm of thyroid; Z87.440 Personal history of urinary (tract) infections; Z82.49 Family history of ischemic heart disease and other diseases of the circulatory system; Z83.3 Family history of diabetes mellitus; Z95.1 Presence of aortocoronary bypass graft; Z82.0 Family history of epilepsy and other diseases of the nervous system; Z88.8 Allergy status to other drugs, medicaments and biological substances; Z80.8 Family history of malignant neoplasm of other organs or systems; Z82.3 Family history of stroke; Z80.6 Family history of leukemia; Z88.5 Allergy status to narcotic agent; Z80.1 Family history of malignant neoplasm of trachea, bronchus and lung; Z80.0 Family history of malignant neoplasm of digestive organs; Z87.891 Personal history of nicotine dependence; Z90.710 Acquired absence of both cervix and uterus; Z85.3 Personal history of malignant neoplasm of breast
CPT/HCPCS: 36415; 71045; 80048; 80053; 80061; 80076; 80307; 81001; 82550; 82947; 83690; 83735; 83880; 84443; 84484; 85025; 85379; 85610; 85730; 87086; 93005; 93306; 93970; 94640; 96361; 96365; 96372; J0696; J1650; J1815; J7120; P9612; 99285-25